=== PATIENT | male | born 1945 | race Caucasian/White ===

== ENCOUNTER 2019-03-09 01:29 | Outpatient (CLI) | payer MEDICARE, OTHER, SELFPAY ==
--- NOTE | 2019-03-09 | PFT_ITS ---
PULMONARY FUNCTION TEST REPORT Patient - Mark Rivers DATE OF SERVICE March 09, 2019 REQUESTING PROVIDER Gilbert Lopez M.D. INTERPRETATION OF STUDY Spirometry shows no evidence of obstructive airways disease. No bronchodilator testing was carried out. LUNG VOLUMES - Lung volumes show no evidence of restriction. DIFFUSION CAPACITY- Normal. AIRWAY RESISTANCE - Normal. IMPRESSION Normal pulmonary function study. Clinical correlation recommended. Johnna Chapin M.D. SORAIDA/ T- 03/10/2019
== END 2019-03-09 01:49 ==
PROVIDERS: PCP Family Medicine; Visit Provider Family Medicine
DX: R06.2 Wheezing (principal); R05 Cough; R06.09 Other forms of dyspnea; Z87.891 Personal history of nicotine dependence; Z77.29 Contact with and (suspected) exposure to other hazardous substances
CPT/HCPCS: 94150; 94726; 94729; 94010

== ENCOUNTER 2019-05-23 10:05 | Outpatient (REF) | payer MEDICARE, OTHER, SELFPAY ==
[2019-05-23 14:24] LABS: Anion Gap 6.4 mmol/L (3-11); BUN 28 mg/dL (7-18); CO2 28.6 mmol/L (21.0-32.0); CREATININE 0.78 mg/dL (0.70-1.30); Calcium 9.1 mg/dL (8.5-10.1); Chloride 106 mmol/L (98-107); Glucose 105 mg/dL (70-100); Potassium 4.5 mmol/L (3.5-5.1); Sodium 141 mmol/L (136-145)
== END 2019-05-23 10:25 ==
LOC: NCHCN 10:05
PROVIDERS: PCP Family Medicine; Visit Provider Family Medicine
DX: M19.90 Unspecified osteoarthritis, unspecified site (principal); M54.5 Low back pain
CPT/HCPCS: 80048

== ENCOUNTER 2019-07-31 00:56 | Outpatient (CLI) | payer MEDICARE, OTHER, SELFPAY ==
--- NOTE | 2019-07-31 08:19 | DI.CT_ITS ---
EXAM: CT HEAD WO CLINICAL HISTORY: HEADACHE, POST TRAUMATIC, G44.309, DAILY DEL ROSARIO SINCE TRAUMA TECHNIQUE: COMPARISON: No exams were available for comparison FINDINGS: Noncontrast cranial CT was performed. There is mild generalized cerebral atrophy. No evidence of in tracranial hemorrhage, mass effect, or midline shift. Orbital and temporal bone structures appear in tact. Visualized mastoid air cells and paranasal sinuses are clear. No calvarial fracture identifie d. IMPRESSION: No evidence of acute intracranial process.
== END 2019-07-31 01:16 ==
PROVIDERS: PCP Family Medicine; Visit Provider Family Medicine
DX: G44.309 Post-traumatic headache, unspecified, not intractable (principal); G31.89 Other specified degenerative diseases of nervous system
CPT/HCPCS: 70450

== ENCOUNTER 2020-03-01 10:38 | Outpatient (REF) | payer MEDICARE, OTHER, SELFPAY ==
[2020-03-01 23:25] LABS: Anion Gap 5.5 mmol/L (3-11); BUN 25 mg/dL (7-18); CO2 29.5 mmol/L (21.0-32.0); CREATININE 0.78 mg/dL (0.70-1.30); Calcium 9.2 mg/dL (8.5-10.1); Calculated LDL 62 mg/dL (<100); Chloride 104 mmol/L (98-107); Cholesterol 128 mg/dL (<200); Glucose 101 mg/dL (74-106); HDL Cholesterol 45 mg/dL (40-60); Potassium 4.5 mmol/L (3.5-5.1); Sodium 139 mmol/L (136-145); Triglyceride 106 mg/dL (<150)
== END 2020-03-01 10:58 ==
LOC: NCHCN 10:38
PROVIDERS: PCP Family Medicine; Visit Provider Family Medicine
DX: I25.10 Atherosclerotic heart disease of native coronary artery without angina pectoris (principal); I49.3 Ventricular premature depolarization; M19.90 Unspecified osteoarthritis, unspecified site
CPT/HCPCS: 80048; 80061; 83735

== ENCOUNTER 2020-10-23 15:39 | Outpatient (REF) | payer MEDICARE, OTHER, SELFPAY ==
[2020-10-23 15:34] LABS: Prothrombin Time 10.2 sec (9.3-11.0)
[2020-10-23 15:52] LABS: ALT 34 U/L (16-63); AST 25 U/L (15-37); Albumin 4.1 g/dL (3.4-5.0); Alkaline Phosphatase 75 U/L (46-116); Anion Gap 9.7 mmol/L (3-11); BUN 37 mg/dL (7-18); Bilirubin, Total 0.4 mg/dL (0.2-1.0); CO2 25.3 mmol/L (21.0-32.0); CREATININE 0.9 mg/dL (0.70-1.30); Chloride 106 mmol/L (98-107); Glucose 106 mg/dL (74-106); Potassium 4.4 mmol/L (3.5-5.1); Sodium 141 mmol/L (136-145); Total Protein 7.4 g/dL (6.4-8.2)
== END 2020-10-23 15:40 | disposition home or self-care (01) ==
LOC: NCHCN 15:39
PROVIDERS: PCP Family Medicine; Visit Provider Family Medicine
DX: I10 Essential (primary) hypertension (principal); E78.5 Hyperlipidemia, unspecified; Z51.81 Encounter for therapeutic drug level monitoring
CPT/HCPCS: 80053; 85610

== ENCOUNTER 2021-09-16 14:38 | Outpatient (REF) | payer MEDICARE, OTHER, SELFPAY ==
[2021-09-16 14:50] LABS: HCT 43.7 % (40.0-50.0); HGB 14.5 g/dL (13.5-17.5); MCH 31.3 pg (27.0-33.0); MCHC 33.2 % (32.0-36.0); MCV 94.4 fL (80-95); MPV 9.8 fL (8.0-11.0); Platelet Count 261 10^3/uL (130-400); RBC 4.63 10^6/uL (4.36-5.78); RDW 10.8 % (11.8-14.1); RDW-SD 37.2 fL; WBC 6.18 10^3/uL (4.4-10.8)
[2021-09-16 15:03] LABS: Anion Gap 10.2 mmol/L (3-11); BUN 27 mg/dL (7-18); CO2 26.8 mmol/L (21.0-32.0); Calcium 9.2 mg/dL (8.5-10.1); Chloride 104 mmol/L (98-107); Glucose 110 mg/dL (74-106); Potassium 3.9 mmol/L (3.5-5.1); Sodium 141 mmol/L (136-145)
== END 2021-09-16 14:39 | disposition home or self-care (01) ==
LOC: NCHCN 14:38
PROVIDERS: PCP Family Medicine; Visit Provider Family Medicine
DX: M51.36 Other intervertebral disc degeneration, lumbar region (principal); I25.10 Atherosclerotic heart disease of native coronary artery without angina pectoris
CPT/HCPCS: 80048; 85027

== ENCOUNTER 2022-05-12 14:59 | Outpatient (REF) | payer MEDICARE, SELFPAY ==
[2022-05-16 04:40] LABS: EDDP-by GC-MS Negative ng/mL (Cutoff: 100); Methadone Interpretation Negative.; Methadone-by GC-MS Negative ng/mL (Cutoff: 100)
== END 2022-05-12 15:00 | disposition home or self-care (01) ==
LOC: NCHCN 14:59
PROVIDERS: PCP Family Medicine; Visit Provider Family Medicine
DX: M54.59 Other low back pain (principal)
CPT/HCPCS: 80358

== ENCOUNTER 2022-07-15 13:03 | Outpatient (REF) | payer MEDICARE, SELFPAY ==
[2022-07-15 15:52] LABS: ALT 19 U/L (16-63); AST 20 U/L (15-37); Albumin 3.9 g/dL (3.4-5.0); Alkaline Phosphatase 76 U/L (46-116); Anion Gap 6.7 mmol/L (3-11); BUN 25 mg/dL (7-18); Bilirubin, Total 0.4 mg/dL (0.2-1.0); CO2 28.3 mmol/L (21.0-32.0); CREATININE 0.8 mg/dL (0.70-1.30); Calcium 8.7 mg/dL (8.5-10.1); Chloride 106 mmol/L (98-107); Estimated GFR 91.72 (mL/min/1.73m2); Glucose 104 mg/dL (74-106); Potassium 4.2 mmol/L (3.5-5.1); Sodium 141 mmol/L (136-145); TSH (W/Ref FT4) 1.18 uIU/mL (0.36-3.74); Total Protein 7.3 g/dL (6.4-8.2)
== END 2022-07-15 13:04 | disposition home or self-care (01) ==
LOC: NCHCN 13:03
PROVIDERS: PCP Family Medicine; Visit Provider Family Medicine
DX: I49.3 Ventricular premature depolarization (principal); R25.1 Tremor, unspecified; Z79.899 Other long term (current) drug therapy
CPT/HCPCS: 80053; 83735; 84443

== ENCOUNTER → 2022-10-01 13:36 | Outpatient (BNVA) | payer MEDICARE, SELFPAY | PROVIDERS: PCP Family Medicine; Referring Provider Family Medicine; Visit Provider Physical Therapy Assistant | DX: Z12.11 Encounter for screening for malignant neoplasm of colon (principal); Z86.010 Personal history of colon polyps ==

== ENCOUNTER 2022-10-15 09:46 | Day surgery (SDC) | payer MEDICARE, SELFPAY ==
--- NOTE | 2022-10-14 20:40 | W.PM.DSUDISC ---
Date of service: 10/15/22 Time of Service: 11:38 Discharge Plan Disposition Condition: Good Discharge Details Reason For Visit: colonoscopy Attending Provider: Carter Moran Primary Care Provider: Gilbert Lopez [place] Meds and New Rx's Prescriptions: Continued meloxicam 15 MG tablet 15 mg PO DAILY tramadol 50 MG tablet 50 mg PO Q4H PRN simvastatin 40 MG tablet 40 mg PO DAILY duloxetine [Cymbalta] 30 MG capsule,delayed release(DR/EC) 60 mg PO DAILY hydrocodone-acetaminophen [Vicodin] 1 EACH tablet 1 tab-cap PO Q6H PRN pramipexole 0.75 MG tablet 0.75 mg PO HS cholecalciferol (vitamin D3) [Vitamin D3] 2,000 UNIT capsule 2,000 unit PO DAILY gabapentin 100 MG capsule 100 mg PO QID metoprolol succinate 25 mg tablet extended release 24 hr 12.5 mg PO HS atorvastatin 40 mg tablet 40 mg PO DAILY tamsulosin 0.4 mg capsule 0.8 mg PO QHS finasteride 5 mg tablet 5 mg PO DAILY trazodone 50 mg tablet 75 mg PO QHS PRN acetaminophen 500 mg tablet 1,000 mg PO Q6H PRN diclofenac sodium [Arthritis Pain (diclofenac)] 1 % gel 2 g topical QID Rx Instructions: apply to single elbow, wrist or hand; for hand includes palm/fingers/back of hand psyllium husk [Fiber (psyllium husk)] 0.4 gram capsule 0.4 g PO DAILY nystatin 100,000 unit/gram powder 1 applic topical DAILY Discontinued bisacodyl [Dulcolax (bisacodyl)] 5 mg tablet,delayed release (DR/EC) 5 mg PO ONCE Qty: 4 0RF Rx Instructions: Take according to provider's instructions for colonoscopy prep. polyethylene glycol 3350 17 gram/dose powder 17 g PO ONCE Qty: 238 0RF Rx Instructions: To be taken as directed by prescriber's office for colonoscopy prep. Discharge Instructions Instructions: Diverticulosis Diet (GEN), Diverticulosis (GEN) Additional Instructions: Mark, we were able to complete your colonoscopy without any difficulty today. The quality of your preparation was excellent. I did not see any signs of colon polyps. Incidentally, you do have diverticulosis. These are small weak spots in the colon wall. Many patients are asymptomatic. Others experience pain that is typically on the left side of their abdomen. Diverticulosis can also cause bleeding in your gastrointestinal tract. I have attached some information here regarding general management of diverticulosis. Based on the otherwise negative nature of your colonoscopy today a typical recommendation would be to have another one in 10 years. However, you should know that there is not a consensus regarding the appropriate age to discontinue screening colonoscopies. I encourage you to discuss this with your primary care doctors in years to come. 1. If tolerated, consume a soft, low fiber diet for 1-2 days. 2. Do not drive, drink alcohol, operate machinery, make critical decisions, or do activities that require coordination or balance for 24 hours. 3. Because air was put into your colon during the procedure, expelling air from your rectum (passing gas or farting) is normal. 4. You may not have a bowel movement for 1-3 days because of the colonoscopy prep. This is normal. 5. Go directly to the emergency room if you notice any of the following: Develop chills (warm to touch), or if you have a thermometer and your temperature is above 101 Difficulty breathing or difficultly swallowing Persistent vomiting Severe abdominal pain, other than gas cramps Severe chest pain Black, tarry stools Any bleeding ? exceeding one tablespoon 6. Call your physician if the site where your intravenous was started becomes red, swollen, painful, and warm to touch. 7. Your physician has reviewed your pre-procedure medications. Please continue to take those medications as previously ordered. You will be given specific information/education regarding any changes to your medications before leaving. Activity:: Activity as Tolerated Diet:: As Tolerated DS: Diagnosis Discharge Diagnosis (1) Colon polyps: Status: Acute Asessment and Plan: Normal screening colonoscopy today, without any evidence of colorectal polyps.
--- NOTE | 2022-10-14 20:43 | COLE_ITS ---
Date of service: 10/15/22 Time of Service: 11:42 Colonoscopy Report Date of procedure: 10/15/22 Pre-op diagnosis general: screening colonoscopy Post-op diagnosis procedure note: other (Diverticulosis) Procedure: Colonoscopy Surgeon: Carter Moran Anesthesia Type: General:No Airway Estimated blood loss (mL): 0 Pathology: none sent Complications: None Disposition: same day Indications: Mark is a 77 year old male with a perpsobal history of colon polyps who is following up for his next screening colonoscopy Prep: Miralax/Dulcolax Procedure Start Time: 11:03 Procedure End Time: 11:14 Retraction Time: 9 Findings: Diverticulosis Procedure Description: After the induction of monitored anesthetic care, and with the patient in left lateral decubitus position, I began by performing an external anorectal exam.? Perineum and skin were normal, as was the anal verge.? There was no evidence of external hemorrhoids.? Next, I performed a digital rectal exam.? I did not appreciate any abnormal findings.? Next, I advanced a colonoscope into the rectal vault.? I performed retroflexion.? This appeared normal.? Using insufflation, I then advanced the colonoscope beyond the rectal folds and into the sigmoid colon before advancing towards the cecum.? The quality of the prep was excellent.? There was moderate sigmoid diverticulosis. the scope was noted to be in the cecum by identification of the ileocecal valve and appendiceal o rifice.? I then began withdrawing the colonoscope using repeated irrigation as necessary for full evaluation of the colonic mucosa. ?Once the scope was withdrawn to the level of the rectum, great care was taken to examine portions of the rectal folds.? Finally, the scope was withdrawn and the patient was brought to the same-day surgery recovery unit as the anesthetic wore off. ?The findings and instructions were shared with the patient prior to discharge.
[2022-10-15 10:00] VITALS: BP 90/61; PULSE 71; RESP 16; TEMP 36.4; O2SAT 95
--- NOTE | 2022-10-15 10:39 | W.ANESPRE ---
General Info Date of Service Date Performed: 10/15/22 Height: 5 ft 6.5 in Weight: 84.5 kg Body Mass Index (BMI): 29.6 Surgical Procedure: Operation Date: 10/15/22 11:20 Proposed Procedure Side Surgeon cara Moran MD Meds Allergies and Home Medications Allergies Allergy/AdvReac Type Severity Reaction Status Date / Time Penicillins Allergy Intermediate facial Unverified 10/15/22 10:18 swelling Home Medication Medication Instructions Recorded cholecalciferol (vitamin D3) 50 2,000 unit PO DAILY 12/25/14 mcg (2,000 unit) capsule (Vitamin D3) duloxetine 30 mg capsule,delayed 60 mg PO DAILY 12/25/14 release (Cymbalta) hydrocodone 5 mg-acetaminophen 300 1 tab-cap PO Q6H PRN 12/25/14 mg tablet (Vicodin) meloxicam 15 mg tablet 15 mg PO DAILY 12/25/14 pramipexole 0.75 mg tablet 0.75 mg PO HS 12/25/14 simvastatin 40 mg tablet 40 mg PO DAILY 12/25/14 tramadol 50 mg tablet 50 mg PO Q4H PRN 12/25/14 gabapentin 100 mg capsule 100 mg PO QID 12/28/14 acetaminophen 500 mg tablet 1,000 mg PO Q6H PRN 07/17/22 atorvastatin 40 mg tablet 40 mg PO DAILY 07/17/22 diclofenac sodium 1 % topical gel 2 g topical QID 07/17/22 (Arthritis Pain (diclofenac)) finasteride 5 mg tablet 5 mg PO DAILY 07/17/22 metoprolol succinate 25 mg 12.5 mg PO HS 07/17/22 tablet,extended release 24 hr nystatin 100,000 unit/gram topical 1 applic topical DAILY 07/17/22 powder psyllium husk 0.4 gram capsule 0.4 g PO DAILY 07/17/22 (Fiber (psyllium husk)) tamsulosin 0.4 mg capsule 0.8 mg PO QHS 07/17/22 trazodone 50 mg tablet 75 mg PO QHS PRN 07/17/22 Current Visit Medications: Current Medications Generic Name Dose Route Start Last Admin Trade Name Freq PRN Reason Stop Dose Admin Hyoscyamine Sulfate 0.125 mg 10/14/22 20:49 Hyoscyamine 0.125 Mg Sl/Oral/Chew SL 10/15/22 20:48 PRN PRN Ringer's Solution 1,000 mls @ 80 mls/hr 10/15/22 06:00 IV 11/13/22 23:59 [facility] IV Miscellaneous Supplies 1 each 10/15/22 06:00 Iv Access IV 11/13/22 23:59 DIRECTED LEIDA Ondansetron HCl 4 mg 10/14/22 20:44 Ondansetron 4 Mg/2 Ml Vial IVP Q4H PRN PRN Nausea / Vomiting Sodium Chloride 0 ml 10/15/22 06:00 Normal Saline Flush 10 Ml Syr IV 11/13/22 23:59 PRN PRN Sodium Chloride 0 ml 10/15/22 06:00 Normal Saline 10 Ml Vial IJ 11/13/22 23:59 DIRECTED PRN Sterile Water 0 ml 10/15/22 06:00 Water,Injection,Sterile 10 Ml Vial IJ 11/13/22 23:59 DIRECTED PRN PFSH Active Problems Active Problems: Problem Status Onset Code 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 BPH loc w urin obs/LUTS N40.1 Screening for colon cancer Z12.11 H/O bacterial meningitis Z86.61 Restless legs G25.81 Anxiety and depression F41.9, F32.A Hyperlipidemia E78.5 CAD (coronary artery disease) I25.10 BPH w urinary obs/LUTS N40.1, N13.8 Hydrocele, right N43.3 Headache, post-traumatic G44.309 Osteoarthritis of carpometacarpal joint M19.049 Premature ventricular beat I49.3 Insomnia G47.00 H/O degenerative disc disease Z87.39 DJD (degenerative joint disease) M19.90 Back pain M54.9 Chronic pain G89.29 Colon polyps K63.5 Tremor R25.1 Surgical History Surgical History History of colonoscopy Tobacco Smoking/Tobacco Use Status: Former Tobacco Use Alcohol Alcohol Intake: former Substance Use Substance use: Never Substance use type: does not use Vital Signs and Lab Results Vital Signs Most Recent Vital Signs in EMR: Most Recent Vital Signs Temp Pulse Resp BP Pulse Ox 36.4 C L 71 16 90/61 L 95 10/15/22 10:00 10/15/22 10:00 10/15/22 10:00 10/15/22 10:00 10/15/22 10:00 Lab Results Blood Type / Crossmatch: No Data to Display Complete Blood Count: No Data to Display Complete Metabolic Panel: No Data to Display Liver Function Panel: No Data to Display Coagulation Panel: No Data to Display Cardiac Panel: No Data to Display Arterial Blood Gas: No Data to Display Venous Blood Gas: No Data to Display Pancreas Panel: No Data to Display Thyroid Panel: No Data to Display Infectious Disease: No Data to Display Blood Cultures: No Data to Display Toxicology Panel: No Data to Display Imaging and Studies Imaging and Studies Study information below may be from another EMR and interpreted by another provider. Please see original notes in EMR for more complete details. Pulmonary Function Summary: IMPRESSION Normal pulmonary function study. Clinical correlation recommended. Anesthesia Assessment and Plan Anesthesia History Personal History: No History of Anesthesia Complications Family History: No Family History of Anesthesia Complications Exercise Tolerance Exercise Tolerance: Metabolic Equivalents>4 Pertinent Negatives Pertinent Negatives: No Symptoms of GERD Cardiac & Pulmonary Exam Cardiac Exam: Normal S1/S2 Heart Sounds Pulmonary Exam: Clear Bilateral Breath Sounds Implantable Cardiac Device Does patient have a Pacemaker or an ICD?: No Airway Exam Known Difficult Airway: No Mallampati Class: 2 Mouth Opening: Normal (> 3cm) Thyromental Distance: Greater than 3 cm Neck Range of Motion: Full ROM Neck Circumference: Normal Teeth Condition: Edentulous ASA Classification ASA Score: ASA 2 Emergency Case?: No NPO Status NPO Status: NPO Clears >2 hours, Solids >8 hours Anesthesia Plan Resuscitation Status: Full Code Anesthesia Technique: General Anesthesia Airway Planned: Natural Airway Monitors Used: Standard Monitors
[2022-10-15] MEDS: Lactated Ringers 1,000 ML 80 ML IV (10:40)
[2022-10-15 10:44] VITALS: BMI 29.6
[2022-10-15 11:24] VITALS: BP 91/58; PULSE 63; RESP 16; TEMP 36.5; O2SAT 64
--- NOTE | 2022-10-15 11:32 | W.ANESPOSTOP ---
Postoperative Evaluation Date, Time and Location Date Performed: 10/15/22 Time Performed: 11:33 Patient Location: Day Surgery Unit Vital Signs Most Recent Imported Vital Signs: Most Recent Vital Signs Temp Pulse Resp BP Pulse Ox 36.5 C 63 16 91/58 L 64 L 10/15/22 11:24 10/15/22 11:24 10/15/22 11:24 10/15/22 11:24 10/15/22 11:24 Assessment Mental Status: Arousable with meaningful communication Airway and Respiratory Function: Patent airway with normal (patient baseline) respiratory exam Cardiovascular Function: Hemodynamically Stable Hydration Status: Adequately Hydrated Nausea & Vomiting: No Nausea or Vomiting Pain: Pt. Denies Any Pain Peripheral Nerve Block: Patient did not receive a nerve block
[2022-10-15 11:58] VITALS: BP 90/58; PULSE 62; RESP 18; TEMP 36.5; O2SAT 95
== END 2022-10-15 12:17 | disposition home or self-care (01) ==
PROVIDERS: PCP Family Medicine; Visit Provider Surgery
PROC: 0DJD8ZZ Inspection of Lower Intestinal Tract, Via Natural or Artificial Opening Endoscopic (ICD-10-PCS; CPT 45378; principal; 2022-10-15 11:15)
DX: Z12.11 Encounter for screening for malignant neoplasm of colon (principal); Z86.010 Personal history of colon polyps; K57.30 Diverticulosis of large intestine without perforation or abscess without bleeding
CPT/HCPCS: G0105

== ENCOUNTER → 2022-10-26 10:37 | Outpatient (BNVA) | payer MEDICARE, SELFPAY | PROVIDERS: PCP Family Medicine; Referring Provider Family Medicine; Visit Provider Nurse Practitioner Gerontology | DX: N43.2 Other hydrocele (principal); Z80.42 Family history of malignant neoplasm of prostate; N40.1 Benign prostatic hyperplasia with lower urinary tract symptoms; R39.89 Other symptoms and signs involving the genitourinary system | CPT/HCPCS: 36415; 99215 ==

== ENCOUNTER 2022-10-26 11:35 | Outpatient (REF) | payer MEDICARE, SELFPAY ==
[2022-10-27 19:35] LABS: PSA, Diagnostic 1.9 ng/mL (<=6.5)
== END 2022-10-26 11:36 | disposition home or self-care (01) ==
LOC: LBN 11:35
PROVIDERS: PCP Family Medicine; Visit Provider Nurse Practitioner Gerontology
DX: N40.1 Benign prostatic hyperplasia with lower urinary tract symptoms (principal); N13.8 Other obstructive and reflux uropathy; N42.9 Disorder of prostate, unspecified
CPT/HCPCS: 84153

== ENCOUNTER → 2023-04-27 10:10 | Outpatient (BNVA) | payer MEDICARE, SELFPAY | PROVIDERS: PCP Family Medicine; Referring Provider Family Medicine; Visit Provider Nurse Practitioner Gerontology | DX: N43.3 Hydrocele, unspecified (principal); N40.1 Benign prostatic hyperplasia with lower urinary tract symptoms; R39.89 Other symptoms and signs involving the genitourinary system; Z80.42 Family history of malignant neoplasm of prostate | CPT/HCPCS: 99213 ==

== ENCOUNTER 2023-05-21 14:59 | Outpatient (REF) | payer MEDICARE, SELFPAY ==
[2023-05-21 19:31] LABS: Anion Gap 7.2 mmol/L (3-11); BUN 36 mg/dL (7-18); CO2 26.8 mmol/L (21.0-32.0); CREATININE 0.8 mg/dL (0.70-1.30); Calcium 9.5 mg/dL (8.5-10.1); Chloride 106 mmol/L (98-107); Estimated GFR 91.15 (mL/min/1.73m2); Glucose 99 mg/dL (74-106); Potassium 4.3 mmol/L (3.5-5.1); Sodium 140 mmol/L (136-145)
== END 2023-05-21 15:00 | disposition home or self-care (01) ==
LOC: NCHCN 14:59
PROVIDERS: PCP Family Medicine; Visit Provider Family Medicine
DX: R25.1 Tremor, unspecified (principal); M54.59 Other low back pain; G89.4 Chronic pain syndrome; Z79.899 Other long term (current) drug therapy
CPT/HCPCS: 80048

== ENCOUNTER → 2023-06-02 09:57 | Outpatient (BNVA) | payer MEDICARE, SELFPAY | PROVIDERS: PCP Family Medicine; Referring Provider Family Medicine; Visit Provider Student in an Organized Health Care Education/Training Program | DX: M19.011 Primary osteoarthritis, right shoulder (principal); M19.012 Primary osteoarthritis, left shoulder | CPT/HCPCS: 20610; 99213; J1030 ==

== ENCOUNTER 2023-07-30 10:55 | Outpatient (CLI) | payer MEDICARE, SELFPAY ==
--- NOTE | 2023-07-30 10:45 | DI.RAD_ITS ---
Exam(s) XR KNEE RT 3V AP,LAT,SEFERINO EXAM: XR KNEE RT 3V AP,LAT,SEFERINO CLINICAL HISTORY: R knee pain. TECHNIQUE: 2D digital imaging was performed. Three views. COMPARISON: No exams were available for comparison FINDINGS: BONES: No acute fracture is present. No bony destructive lesion is seen. JOINTS: The knee is normally aligned. No joint effusion is seen. Severe degenerative changes medial f emoral tibial joint. Periarticular spurring noted throughout. SOFT TISSUE: Marked anterior soft tissue swelling IMPRESSION: Marked anterior soft tissue swelling. Advanced degenerative changes medial femoral tibial joint. DATA REPOSITORY: RADIATION DOSE DELIVERED:
== END 2023-07-30 10:56 | disposition home or self-care (01) ==
LOC: DIORS 10:56
PROVIDERS: PCP Family Medicine; Referring Provider Family Medicine; Visit Provider Physician Assistant
DX: M17.11 Unilateral primary osteoarthritis, right knee; M70.41 Prepatellar bursitis, right knee
CPT/HCPCS: 20610; 73562; J1040

== ENCOUNTER → 2023-10-06 10:30 | Outpatient (BNVA) | payer MEDICARE, SELFPAY | PROVIDERS: PCP Family Medicine; Referring Provider Family Medicine; Visit Provider Student in an Organized Health Care Education/Training Program | DX: M19.011 Primary osteoarthritis, right shoulder (principal); M19.012 Primary osteoarthritis, left shoulder | CPT/HCPCS: 20610; J1030 ==

== ENCOUNTER → 2023-10-26 10:29 | Outpatient (BNVA) | payer MEDICARE, SELFPAY | PROVIDERS: PCP Nurse Practitioner Family; Visit Provider Nurse Practitioner Gerontology | DX: N40.1 Benign prostatic hyperplasia with lower urinary tract symptoms (principal); N43.3 Hydrocele, unspecified | CPT/HCPCS: 51798; 99213 ==

== ENCOUNTER → 2024-01-11 13:22 | Outpatient (BNVA) | payer MEDICARE, SELFPAY | PROVIDERS: PCP Nurse Practitioner Family; Referring Provider Nurse Practitioner Family; Visit Provider Student in an Organized Health Care Education/Training Program | DX: M19.011 Primary osteoarthritis, right shoulder (principal); M19.012 Primary osteoarthritis, left shoulder | CPT/HCPCS: 20610; J1010 ==

== ENCOUNTER → 2024-04-20 13:17 | Outpatient (BNVA) | payer MEDICARE, SELFPAY | PROVIDERS: PCP Nurse Practitioner Family; Referring Provider Nurse Practitioner Family | DX: M19.011 Primary osteoarthritis, right shoulder (principal); M19.012 Primary osteoarthritis, left shoulder | CPT/HCPCS: 20610; J1010 ==

== ENCOUNTER → 2024-05-02 09:17 | Outpatient (BNVA) | payer MEDICARE, SELFPAY | PROVIDERS: PCP Nurse Practitioner Family; Visit Provider Nurse Practitioner Gerontology | DX: N40.1 Benign prostatic hyperplasia with lower urinary tract symptoms (principal); N13.8 Other obstructive and reflux uropathy; N43.3 Hydrocele, unspecified; Z80.42 Family history of malignant neoplasm of prostate | CPT/HCPCS: 51798; 99213 ==

== ENCOUNTER 2024-05-02 11:24 | Outpatient (CLI) | payer MEDICARE, SELFPAY ==
[2024-05-02 18:52] LABS: PSA, Diagnostic 0.8 ng/mL (<=6.5)
== END 2024-05-02 11:25 ==
LOC: LBO 11:29
PROVIDERS: PCP Nurse Practitioner Family; Visit Provider Nurse Practitioner Gerontology
DX: N40.1 Benign prostatic hyperplasia with lower urinary tract symptoms (principal); N13.8 Other obstructive and reflux uropathy; N43.3 Hydrocele, unspecified; Z80.42 Family history of malignant neoplasm of prostate; R39.9 Unspecified symptoms and signs involving the genitourinary system
CPT/HCPCS: 36415; 51798; 99213; 84153

== ENCOUNTER 2024-05-29 15:42 | Outpatient (REF) | payer MEDICARE, SELFPAY ==
[2024-05-29 18:02] LABS: ALT 35 U/L (16-63); AST 27 U/L (15-37); Albumin 3.9 g/dL (3.4-5.0); Alkaline Phosphatase 81 U/L (46-116); Anion Gap 9.3 mmol/L (3-11); BUN 33 mg/dL (7-18); Bilirubin, Total 0.38 mg/dL (0.2-1.0); CO2 27.7 mmol/L (21.0-32.0); Calcium 9.1 mg/dL (8.5-10.1); Calculated LDL 51 mg/dL (<100); Chloride 107 mmol/L (98-107); Cholesterol 136 mg/dL (<200); Estimated GFR 77.04 (mL/min/1.73m2); Glucose 106 mg/dL (74-106); HDL Cholesterol 68 mg/dL (40-60); Potassium 4.6 mmol/L (3.5-5.1); Sodium 144 mmol/L (136-145); Total Protein 7.3 g/dL (6.4-8.2); Triglyceride 89 mg/dL (<150)
== END 2024-05-29 15:43 | disposition home or self-care (01) ==
LOC: NCHCN 15:42
PROVIDERS: PCP Nurse Practitioner Family; Visit Provider Nurse Practitioner Family
DX: I25.10 Atherosclerotic heart disease of native coronary artery without angina pectoris (principal)
CPT/HCPCS: 80053; 80061

== ENCOUNTER 2024-06-09 19:54 | Emergency (ER) | payer MEDICARE, SELFPAY ==
--- NOTE | 2024-06-09 20:00 | DI.CT_ITS ---
Exam(s) CT UPPER EXTREMITY LT W EXAM: CT UPPER EXTREMITY LT W CLINICAL HISTORY: Concern for biceps tendon rupture/tear. TECHNIQUE: Imaging Protocol: Axial computed tomography images with coronal and sagittal reformatted images were created and reviewed. CONTRAST MATERIAL: Intravenous: Omnipaque [id number]. Contrast Volume: 100 ML COMPARISON: CR XR SHOULDER LEFT from 03/23/2023 FINDINGS: Bones: The osseous structures and articular surfaces are intact. Bony alignment is satisfactory. N o cellulitic or osteomyelitic changes are identified. Degenerative changes are seen at the acromiocl avicular and glenohumeral joints. The visualized elbow is intact. No lytic or sclerotic lesions are identified. Soft Tissues: The biceps tendon does appear to be intact distally but this is better evaluated on MRI examination. There is edema seen around the biceps tendon throughout its length anteriorly. The fi ndings are most marked in the proximal arm near the bicipital groove. There may be mild decrease in density of the muscle in the proximal arm (series 13 images 82 through 93 which may represent a muscl e tear. Enhancement: No abnormal enhancement is identified. IMPRESSION: 1. No acute fracture or dislocation. 2. There is edema seen around the biceps muscle which is most marked in the proximal arm near the bic ipital groove. 3. There is a question of decreased density in the biceps muscle in the proximal arm which may repres ent a muscle tear. Infection/inflammation cannot be excluded. 4. No focal fluid collection is seen to suggest an abscess. 5. MRI is recommended for further evaluation. RADIATION DOSE DELIVERED: 877.36mGy.cm Total DLP 877.36mGy.cm Total DLP DATA REPOSITORY: All CT scans at this facility are submitted to the National Radiology Data Registry (NRDR) Dose Index Registry (DIR) with the [employer] ([employer]). RADIATION OPTIMIZATION: All CT scans at this facility use at least one of these dose optimization te chniques: automated exposure control; mA and/or kV adjustment per patient size (includes targeted exa ms where dose is matched to clinical indication); or iterative reconstruction.
[2024-06-09 20:02] VITALS: BP 118/70; PULSE 91; RESP 18; TEMP 36.7; O2SAT 98
--- NOTE | 2024-06-09 20:07 | ED.GENADUL_ITS ---
Discharge Plan Disposition Patient Disposition: Home Condition: Stable Discharge Details Clinical Impression: Tear of left biceps muscle, CAD (coronary artery disease), Hyperlipidemia, Osteoarthritis of glenohumeral joints, bilateral, DJD (degenerative joint disease) Primary Care Provider: ELVIA BARRETT ED Provider: Ness Mera Home Meds and New Rx's Prescriptions: No Action duloxetine [Cymbalta] 30 MG capsule,delayed release(DR/EC) 60 mg PO DAILY hydrocodone-acetaminophen [Vicodin] 1 EACH tablet 1 tab-cap PO Q6H PRN pramipexole 0.75 MG tablet 0.75 mg PO HS cholecalciferol (vitamin D3) [Vitamin D3] 2,000 UNIT capsule 2,000 unit PO DAILY atorvastatin 40 mg tablet 40 mg PO DAILY tamsulosin 0.4 mg capsule 0.8 mg PO QHS finasteride 5 mg tablet 5 mg PO DAILY trazodone 50 mg tablet 75 mg PO QHS PRN acetaminophen 500 mg tablet 1,000 mg PO Q6H PRN diclofenac sodium [Arthritis Pain (diclofenac)] 1 % gel 2 g topical QID Rx Instructions: apply to single elbow, wrist or hand; for hand includes palm/fingers/back of hand psyllium husk [Fiber (psyllium husk)] 0.4 gram capsule 0.4 g PO DAILY nystatin 100,000 unit/gram powder 1 applic topical DAILY gabapentin 600 mg tablet 600 mg PO QID Discharge Instructions Instructions: Muscle Strain (DC) Additional Instructions: You were seen in the emergency department today for evaluation of a bulge in your upper arm that is concerning for a biceps muscle tear. You had a full p hysical examination performed with reassuring laboratory studies and got a CT scan that did not show any fractures, dislocations, or fluid collections. It is safe for you to go home and to avoid excessive exertion or strain on that arm until you can be evaluated by orthopedics. Please continue to use all of your home pain management regimens, and wear a sling for comfort as needed to support your arm. You need to follow-up with orthopedics to discuss this injury and neck steps in management. Thank you for allowing us to be part of your care. HPI General Mode of arrival: ambulatory . Date/Time Provider Initiated Documentation: 06/09/24 19:55 . Limitations to Documentation: no limitations . Information obtained by: patient, family and old records reviewed . HPI Narrative: HPI: This is a 78-year-old male patient, [id number], with a past medical history significant for shoulder osteoarthritis, CAD, hyperlipidemia, and chronic back pain. He is presenting for evaluation of 4 days of left upper extremity pain with a new muscle bulge. The patient reports that he was using his tractor, was steering with his left arm, and felt a sudden swelling and popping sensation. He noted that the muscle in his left bicep region seems to bulge up. He states that he has noted some increased tenderness in that area but feels that he is still able to use his arm, but feels subjectively weaker. He reports that his shoulder pain, which typically responds to intra-articular cortisone injections, is located in a different location than his pain is today. He has not noted any numbness or tingling distal to the injury. Overlying ecchymosis appreciated. Prior to this event he was in his normal state of health. He has been taking his baseline pain regimen medications which include Vicodin and gabapentin. He has not required any additional medications for pain management in the outpatient environment Exam: Gen: Awake and alert, in no apparent distress HEENT: Non-icteric sclera Neck: Supple Lungs: No apparent respiratory distress, normal respiratory effort. CV: Appears well perfused, strong distal pulses Abdomen: Non-distended MSK: Moves 4 extremities without apparent limitation in ROM. The patient has a bulge in the region of his left biceps that is tender to palpation without overlying skin changes. He has preserved strength with flexion and extension, supination and pronation, but does note reproduction of pain with flexion and supination. Ruland biceps squeeze test does not elicit supination, distal biceps tendon palpable and without obvious evidence of rupture with hook test. Skin: Visualized skin without rashes, cyanosis. Ecchymosis overlying the left bicep as noted. Neuro: Normal Gait, no obvious focal deficits or facial asymmetry. Speaks in full, clear sentences. Psych: Appropriate for situation. MDM: This is a 78-year-old male patient presenting for evaluation of left bicep swelling and pain. Differential includes but is not limited to biceps tendon rupture, muscle strain/tear. Certainly considered fracture dislocation the patient did not sustain a significant traumatic event. I also considered hematoma, no significant concern for infectious pathology such as abscess. Considered osteoarthritis and wear and tear type strain. No evidence of neurovascular derangement on my physical examination. Unfortunately, we do not have the ability to get MRI in the emergency department this evening, and I do not feel that x-ray would appropriately elucidate the soft tissue concerns that I have. We will proceed with CT with contrast to evaluate for abnormalities. At this time the patient is not desiring of any medications for pain. I will also obtain baseline laboratory studies including CBC, CMP, PT/INR. ED Course: I independently interpreted the laboratory studies, which show no significant leukocytosis, anemia, or thrombocytopenia. The chemistry panel is without evidence of electrolyte abnormality, kidney dysfunction, or liver injury. Independently interpreted the patient's CT scan, and reviewed the radiologist report. There is evidence of biceps muscular tear within the limitations of the CT scan. No evidence for fluid collection such as hematoma or abscess. The patient has a sling at home and I counseled him to use it as needed for comfort and support. We discussed conservative management with his baseline pain regimen, ice, and follow-up with orthopedics. At this time, the patient has had a full medical evaluation and is safe for discharge to home. They are hemodynamically stable, ambulatory, and tolerating PO. They are understanding of the follow-up plan and return precautions. They left our facility without incident. Ness Mera MD Related Data Home Medications ?Medication ?Instructions ?Recorded ?Confirmed cholecalciferol (vitamin D3) 50 2,000 unit PO DAILY 12/25/14 06/09/24 mcg (2,000 unit) capsule (Vitamin D3) duloxetine 30 mg capsule,delayed 60 mg PO DAILY 12/25/14 06/09/24 release (Cymbalta) hydrocodone 5 mg-acetaminophen 300 1 tab-cap PO Q6H PRN 12/25/14 06/09/24 mg tablet (Vicodin) pramipexole 0.75 mg tablet 0.75 mg PO HS 12/25/14 06/09/24 acetaminophen 500 mg tablet 1,000 mg PO Q6H PRN 07/17/22 06/09/24 atorvastatin 40 mg tablet 40 mg PO DAILY 07/17/22 06/09/24 diclofenac sodium 1 % topical gel 2 g topical QID 07/17/22 06/09/24 (Arthritis Pain (diclofenac)) finasteride 5 mg tablet 5 mg PO DAILY 07/17/22 06/09/24 nystatin 100,000 unit/gram topical 1 applic topical DAILY 07/17/22 06/09/24 powder psyllium husk 0.4 gram capsule 0.4 g PO DAILY 07/17/22 06/09/24 (Fiber (psyllium husk)) tamsulosin 0.4 mg capsule 0.8 mg PO QHS 07/17/22 06/09/24 trazodone 50 mg tablet 75 mg PO QHS PRN 07/17/22 06/09/24 gabapentin 600 mg tablet 600 mg PO QID 07/30/23 06/09/24 Allergies Allergy/AdvReac Type Severity Reaction Status Date / Time Penicillins Allergy Intermediate facial Unverified 06/09/24 20:05 swelling General Stated Complaint: Orthopedic ANDREW: 3 Course Vital Signs Vital signs: Vital Signs Temperature 36.7 C 06/09/24 20:02 Pulse 91 H 06/09/24 20:02 Respiratory Rate 18 06/09/24 20:02 Blood Pressure 118/70 06/09/24 20:02 Pulse Oximetry 98 06/09/24 20:02 Temperature 36.7 C 06/09/24 20:02 Pulse 91 H 06/09/24 20:02 Respiratory Rate 18 06/09/24 20:02 Respiratory Effort Normal 06/09/24 20:04 Blood Pressure 118/70 06/09/24 20:02 Pulse Oximetry 98 06/09/24 20:02 Pain Level 4 06/09/24 20:02 Medical Decision Making Quality:SDOH Health Related Social Needs: Health related social needs housing instability, house d, with risk of homelessness(Z59.811) PFSH All Active Problems (Updated 06/09/24 @ 21:16 by Ness Mera MD) Tear of left biceps muscle (Acute) Family history of prostate cancer in father (Acute) Prepatellar bursitis, right knee (Acute) Osteoarthritis of right knee (Acute) DEPO MEDROL 07/30/23 Osteoarthritis of glenohumeral joints, bilateral (Acute) Amanda nodes (DJD hand) (Acute) [place]ber[place] node (Acute) BPH loc w urin obs/LUTS (Acute) Screening for colon cancer (Acute) H/O bacterial meningitis (Acute) Restless legs (Acute) Anxiety and depression (Chronic) Hyperlipidemia (Acute) CAD (coronary artery disease) (Chronic) BPH w urinary obs/LUTS (Acute) Hydrocele, right (Acute) Headache, post-traumatic (Acute) Osteoarthritis of carpometacarpal joint (Acute) Premature ventricular beat (Acute) Insomnia (Acute) H/O degenerative disc disease (Acute) DJD (degenerative joint disease) (Chronic) Back pain (Acute) Chronic pain (Chronic) Colon polyps (Acute) Tremor (Acute) Surgical History History of colonoscopy Social History Smoking/Tobacco Use Status: Former Tobacco Use Quit Date: 07/12/62 Smoking risk assessment performed?: Yes Alcohol Intake: former Drug use: Never Substance use type: does not use Additional Social history: Unable to assess huy
[2024-06-09 20:25] LABS: Abs Immature Grans 0.02 10^3/uL (0.0-0.06); Absolute Basophil Count 0.05 10^3/uL (0.0-0.2); Absolute Eosinophil Count 0.12 10^3/uL (0.0-0.7); Absolute Lymphocyte Count 1.84 10^3/uL (1.2-3.4); Absolute Monocyte Count 0.73 10^3/uL (0.1-0.8); Absolute Neutrophil Count 5.54 10^3/uL (1.2-6.7); Basophils % 0.6 %; Eosinophils % 1.4 %; HCT 46.7 % (40.0-50.0); HGB 15.6 g/dL (13.5-17.5); Immature Grans % 0.2 %; Lymphocytes % 22.2 %; MCH 31.6 pg (27.0-33.0); MCHC 33.4 % (32.0-36.0); MCV 95 fL (80-95); MPV 8.6 fL (8.0-11.0); Monocytes % 8.8 %; Neutrophils % 66.8 %; Platelet Count 271 10^3/uL (130-400); RBC 4.94 10^6/uL (4.36-5.78); RDW 11.3 % (11.8-14.1); RDW-SD 39.2 fL
[2024-06-09] MEDS: Normal Saline - Diluent 50 ML VIAL IJ (20:27)
[2024-06-09 20:28] LABS: Anion Gap 7.7 mmol/L (3-11); BUN 31 mg/dL (7-18); CO2 30.3 mmol/L (21.0-32.0); Chloride 106 mmol/L (98-107); Estimated GFR 77.04 (mL/min/1.73m2); Glucose 118 mg/dL (74-106); Potassium 4.2 mmol/L (3.5-5.1); Sodium 144 mmol/L (136-145)
[2024-06-09] MEDS: Omnipaque 350 MG/ML 100 ML BTL IJ (20:28)
[2024-06-09 20:29] LABS: Prothrombin Time 10.1 sec (9.1-11.1)
[2024-06-09 21:01] VITALS: BP 136/74; PULSE 88
--- NOTE | 2024-06-09 21:10 | DI.VRAD_ITS ---
PROCEDURE INFORMATION: Exam: CT Left Upper Extremity With Contrast, Upper Arm Exam date and time: 06/09/2024 20:20 Age: 78 years old Clinical indication: Pain; Upper arm; Left; Additional info: Concern for biceps tendon rupture/tear TECHNIQUE: Imaging protocol: Computed tomography of the left upper extremity with contrast. Exam focused on the upper arm. Contrast material: OMNI 350; Contrast volume: 100 ml; Contrast route: INTRAVENOUS (IV); COMPARISON: CR XR SHOULDER LEFT 03/23/2023 11:07 FINDINGS: Bones/joints: Evidence of minor chronic ligamentous disease about the elbow. Chronic degenerative changes in the shoulder. No acute fracture or subluxation. Mild edema centered around the biceps musculature is slightly more pronounced proximally; based on CT appearance there is likely at least some tendon present at the level of the radial tuberosity, this area would be but she better assessed on MRI if clinically indicated. Soft tissues: See Bones/joints finding. IMPRESSION: 1. No acute bony pathology. 2. Probable biceps muscular tear and or other source of myositis which is more pronounced proximally. At least some of the distal tendinous attachment appears grossly present however this would be better assessed with MRI if clinically indicated. Dictated and Authenticated by: Princess Deluna MD. Ordering:JESS Foote MD
== END 2024-06-09 21:27 | disposition home or self-care (01) ==
PROVIDERS: Emergency Provider Emergency Medicine; PCP Nurse Practitioner Family
DX: S46.212A Strain of muscle, fascia and tendon of other parts of biceps, left arm, initial encounter (principal); M19.012 Primary osteoarthritis, left shoulder; M19.011 Primary osteoarthritis, right shoulder; I25.10 Atherosclerotic heart disease of native coronary artery without angina pectoris; I10 Essential (primary) hypertension; E78.5 Hyperlipidemia, unspecified; X58.XXXA Exposure to other specified factors, initial encounter
CPT/HCPCS: 80048; 99285; 73201; 85025; 85610; 99284; J3490

== ENCOUNTER → 2024-07-13 13:21 | Outpatient (BNVA) | payer MEDICARE, SELFPAY | PROVIDERS: PCP Nurse Practitioner Family ==

== ENCOUNTER 2024-08-08 15:51 | Outpatient (CLI) | payer MEDICARE, SELFPAY ==
--- NOTE | 2024-08-08 09:00 | DI.RAD_ITS ---
Exam(s) XR SHOULDER LT COMPLETE 2+V EXAM: XR SHOULDER LT COMPLETE 2+V CLINICAL HISTORY: left shoulder pain. TECHNIQUE: 2D digital imaging was performed of the left shoulder. Two images were obtained. Grashe y and axillary views were obtained. COMPARISON: CR XR SHOULDER LEFT from 03/23/2023 FINDINGS: BONES: No acute fracture is present. No bony destructive lesion is seen. JOINTS: No dislocation present. There are degenerative changes seen at the acromioclavicular joint. Mild degenerative changes are also seen at the glenohumeral joint. SOFT TISSUE: Normal. IMPRESSION: Mild degenerative changes seen in the left shoulder. DATA REPOSITORY: RADIATION DOSE DELIVERED:
== END 2024-08-08 15:52 | disposition home or self-care (01) ==
LOC: DIORS 15:51
PROVIDERS: PCP Nurse Practitioner Family; Referring Provider Nurse Practitioner Family; Visit Provider Student in an Organized Health Care Education/Training Program
DX: M19.011 Primary osteoarthritis, right shoulder (principal); M19.012 Primary osteoarthritis, left shoulder
CPT/HCPCS: 99214; 73030

== ENCOUNTER 2024-09-05 05:54 | Day surgery (SDC) | payer MEDICARE, SELFPAY ==
[2024-09-05] VITALS (40 sets, daily range): BP systolic 93–131; BP diastolic 54–80; PULSE 71–92; RESP 16–25; TEMP 36.2–36.6; O2SAT 91–96; BMI 27.1
--- NOTE | 2024-09-05 06:21 | W.ANESPRE ---
General Info Date of Service Date Performed: 09/05/24 Height: 5 ft 9 in Weight: 83.358 kg Body Mass Index (BMI): 27.1 Surgical Procedure: Operation Date: 09/05/24 07:40 Proposed Procedure Side Surgeon p Shoulder Reverse Total Arthroplasty, Possible Biceps Tenodesis (Depuy) Left James Cazares MD Meds Allergies and Home Medications Allergies Allergy/AdvReac Type Severity Reaction Status Date / Time Penicillins Allergy Intermediate facial Verified 09/05/24 06:14 swelling Home Medication ?Medication ?Instructions ?Recorded cholecalciferol (vitamin D3) 50 2,000 unit PO DAILY 12/25/14 mcg (2,000 unit) capsule (Vitamin D3) duloxetine 30 mg capsule,delayed 60 mg PO DAILY 12/25/14 release (Cymbalta) hydrocodone 5 mg-acetaminophen 300 1 tab-cap PO Q6H PRN 12/25/14 mg tablet (Vicodin) pramipexole 0.75 mg tablet 0.75 mg PO HS 12/25/14 acetaminophen 500 mg tablet 1,000 mg PO Q6H PRN 07/17/22 atorvastatin 40 mg tablet 40 mg PO DAILY 07/17/22 diclofenac sodium 1 % topical gel 2 g topical QID 07/17/22 (Arthritis Pain (diclofenac)) finasteride 5 mg tablet 5 mg PO DAILY 07/17/22 nystatin 100,000 unit/gram topical 1 applic topical DAILY 07/17/22 powder psyllium husk 0.4 gram capsule 0.4 g PO DAILY 07/17/22 (Fiber (psyllium husk)) tamsulosin 0.4 mg capsule 0.8 mg PO QHS 07/17/22 trazodone 50 mg tablet 75 mg PO QHS PRN 07/17/22 gabapentin 600 mg tablet 600 mg PO QID 07/30/23 ciclopirox 8 % topical solution topical 09/05/24 meloxicam 15 mg tablet mg 09/05/24 Current Visit Medications: Current Medications Generic Name Dose Route Start Last Admin Trade Name Freq PRN Reason Stop Dose Admin Ringer's Solution 1,000 mls @ 30 mls/hr 09/05/24 06:00 IV 09/05/24 23:59 INFUSION LEIDA Cefazolin Sodium/Dextrose 2 gm in 50 mls @ 100 mls/hr 09/05/24 06:00 Ancef Duplex IVPB 09/05/24 23:59 PREOP LEIDA Tranexamic Acid/Sodium Chloride 1,000 mg in 100 mls @ 600 mls/hr 09/05/24 06:00 IVPB 09/05/24 23:59 PREOP LEIDA IV Miscellaneous Supplies 1 each 09/05/24 06:00 Iv Access IV 09/05/24 23:59 DIRECTED LEIDA Sodium Chloride 0 ml 09/05/24 06:00 Normal Saline Flush 10 Ml Syr IV 09/05/24 23:59 PRN PRN Sodium Chloride 0 ml 09/05/24 06:00 Normal Saline 10 Ml Vial IJ 09/05/24 23:59 DIRECTED PRN Sterile Water 0 ml 09/05/24 06:00 Water,Injection,Sterile 10 Ml Vial IJ 09/05/24 23:59 DIRECTED PRN PFSH Active Problems Active Problems: Problem Status Onset Code Rotator cuff arthropathy of left shoulder Acute M12.812 Rupture of left proximal biceps tendon Acute S46.212A Family history of prostate cancer in father Acute Z80.42 Prepatellar bursitis, right knee Acute M70.41 Osteoarthritis of right knee Acute M17.11 Osteoarthritis of glenohumeral joints, bilateral Acute M19.011, M19.012 Amanda nodes (DJD hand) Acute M15.2 Heberden node Acute M15.1 BPH loc w urin obs/LUTS Acute N40.1 Screening for colon cancer Acute Z12.11 H/O bacterial meningitis Acute Z86.61 Restless legs Acute G25.81 Anxiety and depression Chronic F41.9, F32.A Hyperlipidemia Acute E78.5 CAD (coronary artery disease) Chronic I25.10 BPH w urinary obs/LUTS Acute N40.1, N13.8 Hydrocele, right Acute N43.3 Headache, post-traumatic Acute G44.309 Osteoarthritis of carpometacarpal joint Acute M19.049 Premature ventricular beat Acute I49.3 Insomnia Acute G47.00 H/O degenerative disc disease Acute Z87.39 DJD (degenerative joint disease) Chronic M19.90 Back pain Acute M54.9 Chronic pain Chronic G89.29 Colon polyps Acute K63.5 Tremor Acute R25.1 Surgical History Surgical History (Updated 09/05/24 @ 06:17 by Alyssia Wooten H/O hand surgery S/P lumbar fusion L4-L5 History of colonoscopy Tobacco Smoking/Tobacco Use Status: Former Tobacco Use Alcohol Alcohol Intake: former Substance Use Substance use: Never Substance use type: does not use Vital Signs and Lab Results Vital Signs Most Recent Vital Signs in EMR: Temp Pulse Pulse Ox 36.5 C 79 94 09/05/24 06:24 09/05/24 06:24 09/05/24 06:24 Lab Results Blood Type / Crossmatch: No Data to Display Complete Blood Count: No Data to Display Complete Metabolic Panel: No Data to Display Liver Function Panel: No Data to Display Coagulation Panel: No Data to Display Cardiac Panel: No Data to Display Arterial Blood Gas: No Data to Display Venous Blood Gas: No Data to Display Pancreas Panel: No Data to Display Thyroid Panel: No Data to Display Infectious Disease: No Data to Display Blood Cultures: No Data to Display Toxicology Panel: No Data to Display Imaging and Studies Imaging and Studies Study information below may be from another EMR and interpreted by another provider. Please see original notes in EMR for more complete details. Pulmonary Function Summary: IMPRESSION Normal pulmonary function study. Clinical correlation recommended. Anesthesia Assessment and Plan Anesthesia History Personal History: No History of Anesthesia Complications Family History: No Family History of Anesthesia Complications Exercise Tolerance Exercise Tolerance: Metabolic Equivalents>4 Cardiac & Pulmonary Exam Cardiac Exam: Normal S1/S2 Heart Sounds Pulmonary Exam: Clear Bilateral Breath Sounds Implantable Cardiac Device Does patient have a Pacemaker or an ICD?: No Airway Exam Known Difficult Airway: No Mallampati Class: 2 Mouth Opening: Normal (> 3cm) Thyromental Distance: Greater than 3 cm Neck Range of Motion: Full ROM Neck Circumference: Normal Teeth Condition: Edentulous ASA Classification ASA Score: ASA 2 Emergency Case?: No NPO Status NPO Status: NPO Clears >2 hours, Solids >8 hours Anesthesia Plan Resuscitation Status: Full Code Anesthesia Technique: General Anesthesia Airway Planned: Endotracheal Tube Pain Management: Surgeon and patient request nerve block Monitors Used: Standard Monitors Preoperative Comments:: 78 yo male for reverse total shoulder. Sig PMHx: CAD (denies [place] or chest pain with exertion), anxiety, lumbar fusion. former smoker, occ EtOH. Denies GERD. Sleeps with 4 pillows due to what sounds like post nasal drip. Previous Anes: - colo, prop, natural airway, no issues.
[2024-09-05] MEDS: Lactated Ringers 1,000 ML 30 ML IV (06:50)
--- NOTE | 2024-09-05 07:04 | W.PM.DSUDISC ---
Date of service: 09/05/24 Discharge Plan Disposition Patient Disposition: Home Condition: Stable Discharge Details Attending Provider: James Cazares Primary Care Provider: ELVIA BARRETT Home Meds and New Rx's Prescriptions: New naproxen 250 mg tablet 250 mg PO BID PRN (Reason: Moderate pain) Qty: 20 0RF hydrocodone-acetaminophen 5-325 mg tablet 1 - 2 tab PO Q6H PRNQty: 20 0RF Continued duloxetine [Cymbalta] 30 MG capsule,delayed release(DR/EC) 60 mg PO DAILY hydrocodone-acetaminophen [Vicodin] 1 EACH tablet 1 tab-cap PO Q6H PRN pramipexole 0.75 MG tablet 0.75 mg PO HS cholecalciferol (vitamin D3) [Vitamin D3] 2,000 UNIT capsule 2,000 unit PO DAILY atorvastatin 40 mg tablet 40 mg PO DAILY tamsulosin 0.4 mg capsule 0.8 mg PO QHS finasteride 5 mg tablet 5 mg PO DAILY trazodone 50 mg tablet 75 mg PO QHS PRN acetaminophen 500 mg tablet 1,000 mg PO Q6H PRN diclofenac sodium [Arthritis Pain (diclofenac)] 1 % gel 2 g topical QID Rx Instructions: apply to single elbow, wrist or hand; for hand includes palm/fingers/back of hand psyllium husk [Fiber (psyllium husk)] 0.4 gram capsule 0.4 g PO DAILY nystatin 100,000 unit/gram powder 1 applic topical DAILY gabapentin 600 mg tablet 600 mg PO QID meloxicam 15 mg tablet Patient Comments: TAKE 1 TABLET BY MOUTH ONCE DAILY NEEDED ciclopirox 8 % solution TOPICAL Patient Comments: APPLY A SMALL AMOUNT TOPICALLY IN THE EVENING FOR 30 DAYS FOR TOENAIL FUNGUS Discharge Instructions Additional Instructions: Surgery: Left reverse total shoulder arthroplasty (retentive liner) with biceps tenodesis on 09/05/24 Activity: Do not lift anything heavier than a coffee. You should keep your arm at your side in a relatively neutral position at all times except for gentle range of motion exercises, physical therapy, and essential activities. You should use the sling whenever you are out of the house. At home it is best to remove the sling and rest the arm on a pillow at your side or support the operative side with your other hand. A physical therapy prescription will be sent electronically to start in about 3 weeks. STANDARD Reverse TSA Protocol. Prescriptions: Naproxen 250 mg take 1 every 12 hours with a meal as needed for moderate pain Hydrocodone-acetaminophen 5-325 mg take 1-2 every 4-6 hours as needed for severe pain (do not use at the same time as acetaminophen) You may use [id number] Tylenol (acetaminophen) as needed for mild pain. These pain medications may be taken all at once or in different combinations as needed. Also, recommend Colace (docusate) as a stool softener as surgery and pain medicine cause constipation. You may try [id number] diphenhydramine (Benadryl) 25-50 mg nightly as a sleep aid Dressings: Leave dressing in place until follow-up. Keep clean and dry at all times. No showers please. Follow-up: 10-[address] Cazares You may take off the leg compression stockings this evening at home. You may also leave them on a few days longer if you have a history of leg swelling or edema. Please call the office during business hours with any questions or concerns. Let us know right away if you develop any redness, drainage, fevers, chest pain, or trouble breathing. Do not drink alcohol or drive for at least 24 hours after anesthesia. Stand Alone Forms: Anesthesia Discharge Inst., [email or web address] Block Instructions, Rohith Johnson ([facility]) Referrals: James Cazares MD [ [facility] STAFF PHYSICIAN] - 09/19/24 10:15 am Discharge Orders Discharge Orders: Discharge Order (Routine); Ordered 09/05/24 Ordered By: Clifford Brooke DS: Diagnosis Discharge Diagnosis (1) Rotator cuff arthropathy of left shoulder: Status: Acute (2) Rupture of left proximal biceps tendon: Status: Acute
--- NOTE | 2024-09-05 07:31 | W.PM.OP ---
Operative Note Operative Note PRE-OP DIAGNOSIS: Left: 1. Rotator cuff arthropathy 2. Proximal biceps rupture POST-OP DIAGNOSIS: same PROCEDURE: Left: 1. Reverse total shoulder arthroplasty, CPT # 67881 2. Open biceps tenodesis, CPT # 81244 The press operator assistant was medically required as this procedure involves retraction, protection of neurovascular structures, and manipulation of multiple instruments and implants at the same time, which cannot be done without a skilled press operator assistant. SURGEON: James Cazares [employer] PROFESSOR: Clifford Brooke ANESTHESIA TYPE: Local By Surgeon, General LMA/ETT and Primary Nerve Block Refer to Anesthesia Record ESTIMATED BLOOD LOSS: 200 COMPLICATIONS: None Patient was transported to: PACU Patient's condition: stable Implants: [employer] invendo medical Inhance shoulder system Small baseplate with 35 mm central screw and 20, 20, and 30 mm peripheral locking screws 40+4 mm glenosphere Large standard stem with +0mm shell and +4mm retentive liner Indications: Please see complete medical record for details. Findings: Significant subacute supraspinatus infraspinatus rotator cuff tearing. High-grade proximal biceps rupture with significant glenohumeral tendon remnant and still mobile proximal segment in the bicipital groove. Moderate chondromalacia. Procedure Description: In the operating room, general anesthesia was induced. The patient was positioned beachchair on the operating room table. All bony prominences were well-padded. Preoperative antibiotics were administered. The shoulder was prepped and draped in the usual sterile fashion for shoulder arthroplasty. The correct patient, procedure, and side of the procedure were all verified prior to incision. The deltopectoral approach was preinjected with 0.25% bupivacaine containing epinephrine and taken to the anterior shoulder. Care was taken to bluntly dissect the interval between the deltoid and pectoralis major muscles and to identify the cephalic vein within its fat stripe. The the vein was mobilized laterally. Subdeltoid space and conjoined tendon were freed of adhesions. The long head of the biceps tendon was identified just lateral to the lesser tuberosity. The uppermost margin of the pectoralis major tendon was released from the proximal humerus. The long head of the biceps tendon was identified within the bicipital groove. It was still mobile and had a thin remnant heading into the joint of somewhat synovial tissue and there was a large tendon stump irregular regimen at the superior glenoid. There is obvious deficiency and apparent subacute tearing with fraying of the supraspinatus infraspinatus. The subscapularis was largely intact. The biceps tendon was freed up, tension placed somewhat proximally and it was tenodesed to the pectoralis major tendon. A subscapularis tenotomy was performed while delivering the proximal humerus into external rotation. Appropriate coagulation was achieved especially interiorly. The anatomic neck was cut using an oscillating saw with the humeral head bone brought back table in case there was a need for future bone grafting. Attention was then turned to the glenoid and retractors were placed and a circumferential release performed using the long head of the biceps remnant to remove soft tissue about the glenoid rim. Care was taken inferiorly to work on bone only between 5 and 7:00 o'clock and bluntly elevate tissues inferiorly. The guide was placed on the glenoid and used to confirm placement and trajectory of the central guidepin. The guidepin was inserted and advanced just through the far cortex ensuring adequate central fixation length. The glenoid was prepared according to web site administrator specifications for the baseplate and central screw. The baseplate was impacted onto the glenoid surface with good fit followed by excellent compression and fixation of the central screw. The locking guide was then used to drill and place appropriately lengthed anterior, inferior, and posterior screws. The asif-uja-vctkzxtij reamer was used to confirm adequate peripheral reaming and screw heads flush in the baseplate. The glenosphere was applied with the binding folder machine and then impacted to engage the Golden taper. It was then locked with appropriate countersinking of the setscrew. The glenosphere was inspected and found to have good fit, appropriate positioning, and no soft tissue or bony impingement. The proximal humerus was delivered from the wound with adduction and external rotation. The proximal humerus was sized followed by insertion of the bicortical pin and over reaming. The blaze was then used with good bony fixation followed by the pin broaches to confirm correct orientation down the canal with care to maintain about 30 degrees retroversion and sufficient lateral to inline humeral alignment. A small bout of bone was removed laterally and inferiorly given the increased size superior-inferior relative to medial-lateral. The final stem was then impacted with excellent fit fixation strength and rotational control. Trialing was then done with a 0 mm liner and demonstrated reasonable stability and tension at +4 mm. Without placing undue tension on the construct, stability was excellent and more appropriate with a retentive liner. The trial shell and liner were removed. The final shell was impacted, checked, and then the final retentive liner was clicked appropriately into place, range of motion, stability, and tension confirmed. The shoulder was copiously irrigated with Betadine and normal saline. Hemostasis was appropriate. The deltopectoral interval was well-approximated. Subcutaneous tissue was irrigated then closed using 2-0 Monocryl in a buried interrupted fashion. Skin was closed using 3-0 Monocryl in a buried subcuticular fashion. Skin glue was applied to the incision. A silver impregnated bandage was placed over the incision. The extremity was placed into a shoulder immobilizer. The patient awoke from anesthesia without complication and was taken to the recovery room in stable condition. Date of Procedure: 09/05/24
[2024-09-05] MEDS: ceFAZolin 2 GM/50 ML BAG IVPB (07:45)
[2024-09-05] MEDS: TRANEXAMIC ACID/SOD. CHL. 1,000 MG/100 ML BAG 600 MG IVPB (07:48)
--- NOTE | 2024-09-05 08:04 | W.ANESNERVE ---
Nerve Block Single Injection Procedure Date and Time Date Performed: 09/05/24 Procedure Start: 07:18 Location Where Procedure Performed Procedure Location: Day Surgery Unit Reason Performed: Postoperative Analgesia Requesting Provider: James Cazares Timeout Performed Timeout Performed: Yes Monitoring Used ECG, Blood Pressure and SpO2 Sterility Sterility: Hand Hygiene, Surgical Cap, Surgical Mask, Sterile Gloves and Chlorhexidine Sedation Given During Procedure Sedation Given (Indicate Dose Given): No Sedation given Patient Mental Status Patient Mental Status: Awake Nerve Block 1st Nerve Block: Laterality: Left Block Type: Interscalene Ultrasound Image Saved?: Yes Needle / Catheter Used: 100mm SonoPlex II Local Anesthetic Bolus (Indicate Dose Given): Lidocaine used for local infiltration of skin, Bupivacaine 0.5% Dose:: 10 mL and Exparel Dose:: 10 mL Additives (Indicate Dose Given): None Ultrasound: Sterile probe cover and gel used Nerve Stimulator: Supplement to Ultrasound use and No twitch or parasthesia noted < 0.5 mA Paresthesia: None Procedure Tolerated: No Complications Procedure Outcome: Successful Procedure Comment: 2 attempts due to inadvertent needle removal and then contamination. New needle used to complete the block. Performed By: Star Salvador
[2024-09-05] MEDS: Bupivacaine 0.25% Pres-Free W/EPI 30 ML VIAL (08:21)
[2024-09-05] MEDS: ceFAZolin 1 GM/50 ML BAG IVPB (10:53)
--- NOTE | 2024-09-05 11:00 | DI.RAD_ITS ---
Exam(s) XR SHOULDER RT COMPLETE 2+V EXAM: XR SHOULDER RT COMPLETE 2+V INDICATION: Shoulder Arthritis. COMPARISON: CR XR SHOULDER RIGHT from 03/23/2023 CR XR SHOULDER LEFT from 03/23/2023 CR XR SHOULDER LT COMPLETE 2+V from 08/08/2024 TECHNIQUE: 2D digital imaging was performed. Two views. FINDINGS: A shoulder prosthesis has been placed. The components show satisfactory alignment. Residual postsur gical air in the soft tissues. DATA REPOSITORY: RADIATION DOSE DELIVERED:
--- NOTE | 2024-09-05 11:20 | W.ANESPOSTOP ---
Postoperative Evaluation Date, Time and Location Date Performed: 09/05/24 Time Performed: 11:20 Patient Location: PACU Vital Signs Most Recent Imported Vital Signs: Most Recent Vital Signs Temp Pulse Resp BP Pulse Ox 36.6 C 82 19 94/54 L 93 09/05/24 07:33 09/05/24 10:56 09/05/24 10:56 09/05/24 10:55 09/05/24 10:56 Pain Score Most Recent Pain Score: Most Recent Pain Score Pain Level 5 09/05/24 07:33 Assessment Mental Status: Awake (Alert & Oriented to Patient Baseline) Airway and Respiratory Function: Patent airway with normal (patient baseline) respiratory exam Cardiovascular Function: Hemodynamically Stable Hydration Status: Adequately Hydrated Nausea & Vomiting: No Nausea or Vomiting Pain: Pain is tolerable per patient Peripheral Nerve Block: Regional nerve block not resolved at time of post operative discharge
--- NOTE | 2024-09-05 12:16 | DI.RAD_ITS ---
Exam(s) XR SHOULDER LT COMPLETE 2+V EXAM: XR SHOULDER LT COMPLETE 2+V INDICATION: Shoulder Arthritis. COMPARISON: CR XR SHOULDER RIGHT from 03/23/2023 CR XR SHOULDER LEFT from 03/23/2023 CR XR SHOULDER LT COMPLETE 2+V from 08/08/2024 TECHNIQUE: 2D digital imaging was performed. Two views. FINDINGS: A shoulder prosthesis has been placed. The components show satisfactory alignment. Residual postsur gical air in the soft tissues. DATA REPOSITORY: RADIATION DOSE DELIVERED:
== END 2024-09-05 13:35 | disposition home or self-care (01) ==
PROVIDERS: PCP Nurse Practitioner Family; Visit Provider Student in an Organized Health Care Education/Training Program
PROC: (CPT 23472; principal; 2024-09-05 07:30)
DX: M12.812 Other specific arthropathies, not elsewhere classified, left shoulder (principal); S46.212A Strain of muscle, fascia and tendon of other parts of biceps, left arm, initial encounter; X58.XXXA Exposure to other specified factors, initial encounter; I25.10 Atherosclerotic heart disease of native coronary artery without angina pectoris; G89.18 Other acute postprocedural pain
CPT/HCPCS: 23472; 23430; C1713; 64415; 73030; J0131; J0665; J0666; J0690; J1100; J1805; J2003; J2405; J2704

== ENCOUNTER 2024-09-19 15:52 | Outpatient (CLI) | payer MEDICARE, SELFPAY ==
--- NOTE | 2024-09-19 15:45 | DI.RAD_ITS ---
Exam(s) XR SHOULDER RT 1V EXAM: XR SHOULDER RT 1V CLINICAL HISTORY: F/U LEFT RTSA. TECHNIQUE: 2D digital imaging was performed. COMPARISON: CR XR SHOULDER LT COMPLETE 2+V from 09/19/2024 FINDINGS: Single View No evidence of fracture or dislocation. However, there is advanced narrowing of the glenohumeral samson nt space. No obvious osteophytes. There are multiple small calcifications in the soft tissue just above the greater tuberosity consiste nt with calcific rotator cuff tendinitis. Subacromial space itself is not diminished. There degener ative changes in the AC joint. 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 No osteophytes. Calcific rotator cuff tendinitis. Moderate degenerative changes in the AC joint. DATA REPOSITORY: RADIATION DOSE DELIVERED:
== END 2024-09-19 15:53 | disposition home or self-care (01) ==
PROVIDERS: PCP Nurse Practitioner Family; Visit Provider Physician Assistant
DX: M12.812 Other specific arthropathies, not elsewhere classified, left shoulder (principal)
CPT/HCPCS: 73020

== ENCOUNTER 2024-09-19 15:56 | Outpatient (CLI) | payer MEDICARE, SELFPAY ==
--- NOTE | 2024-09-19 10:53 | DI.RAD_ITS ---
Exam(s) XR SHOULDER LT COMPLETE 2+V EXAM: XR SHOULDER LT COMPLETE 2+V CLINICAL HISTORY: F/U LEFT RTSA TECHNIQUE: 2D digital imaging was performed. COMPARISON: CR XR SHOULDER LT COMPLETE 2+V from 09/05/2024 FINDINGS: Two views Compared to the postop images of 09/05/2024 there is continued stable position alignment of the compo nents of the recently placed reverse prosthesis. There is no evidence of fracture or loosening nor e vidence of osteomyelitis. IMPRESSION: Stable satisfactory appearance. DATA REPOSITORY: RADIATION DOSE DELIVERED:
== END 2024-09-19 15:57 | disposition home or self-care (01) ==
LOC: DIORS 15:56
PROVIDERS: PCP Nurse Practitioner Family; Referring Provider Nurse Practitioner Family; Visit Provider Student in an Organized Health Care Education/Training Program
DX: M12.812 Other specific arthropathies, not elsewhere classified, left shoulder (principal); Z47.89 Encounter for other orthopedic aftercare
CPT/HCPCS: 99024; 73030

== ENCOUNTER → 2024-10-31 09:49 | Outpatient (BNVA) | payer MEDICARE, SELFPAY | PROVIDERS: PCP Nurse Practitioner Family; Visit Provider Nurse Practitioner Gerontology | DX: N40.1 Benign prostatic hyperplasia with lower urinary tract symptoms (principal); N13.8 Other obstructive and reflux uropathy; N43.3 Hydrocele, unspecified; Z80.42 Family history of malignant neoplasm of prostate | CPT/HCPCS: 99214 ==

== ENCOUNTER → 2024-11-14 09:47 | Outpatient (BNVA) | payer MEDICARE, SELFPAY | PROVIDERS: PCP Nurse Practitioner Family; Visit Provider Student in an Organized Health Care Education/Training Program | DX: Z47.1 Aftercare following joint replacement surgery (principal); Z96.612 Presence of left artificial shoulder joint | CPT/HCPCS: 99024 ==

== ENCOUNTER 2025-01-17 09:45 | Outpatient (CLI) | payer MEDICARE, SELFPAY ==
--- NOTE | 2025-01-17 09:30 | DI.RAD_ITS ---
Exam(s) XR SHOULDER LT COMPLETE 2+V EXAM: XR SHOULDER LT COMPLETE 2+V CLINICAL HISTORY: F/U LEFT RTSA. TECHNIQUE: 2D digital imaging was performed. Three views. COMPARISON: CR XR SHOULDER LT COMPLETE 2+V from 09/19/2024 CR XR SHOULDER RT 1V from 09/19/2024 FINDINGS: BONES: No acute fracture is present. No bony destructive lesion is seen. JOINTS: No dislocation present. Stable alignment shoulder prosthesis. Mild spurring at AC joint. SOFT TISSUE: Normal. IMPRESSION: Stable appearance of left shoulder prosthesis. DATA REPOSITORY: RADIATION DOSE DELIVERED:
== END 2025-01-17 09:46 | disposition home or self-care (01) ==
LOC: DIORS 09:46
PROVIDERS: PCP Nurse Practitioner Family; Referring Provider Nurse Practitioner Family; Visit Provider Student in an Organized Health Care Education/Training Program
DX: Z47.89 Encounter for other orthopedic aftercare (principal); M12.812 Other specific arthropathies, not elsewhere classified, left shoulder
CPT/HCPCS: 99213; 73030

== ENCOUNTER → 2025-03-26 12:56 | Outpatient (BNVA) | payer MEDICARE, SELFPAY | PROVIDERS: PCP Nurse Practitioner Family; Referring Provider Nurse Practitioner Family; Visit Provider Student in an Organized Health Care Education/Training Program | DX: K64.0 First degree hemorrhoids (principal); K62.89 Other specified diseases of anus and rectum | CPT/HCPCS: 99213 ==

== ENCOUNTER → 2025-05-01 15:14 | Outpatient (BNVA) | payer MEDICARE, SELFPAY | PROVIDERS: PCP Nurse Practitioner Family; Referring Provider Nurse Practitioner Family; Visit Provider Nurse Practitioner Gerontology | DX: N40.1 Benign prostatic hyperplasia with lower urinary tract symptoms (principal); N13.8 Other obstructive and reflux uropathy; N43.3 Hydrocele, unspecified; Z80.42 Family history of malignant neoplasm of prostate | CPT/HCPCS: 99213 ==

== ENCOUNTER 2025-05-01 16:05 | Outpatient (CLI) | payer MEDICARE, SELFPAY ==
[2025-05-02 18:13] LABS: PSA, Diagnostic 1.3 ng/mL (<=6.5)
== END 2025-05-01 16:06 | disposition home or self-care (01) ==
LOC: LBO 16:06
PROVIDERS: PCP Nurse Practitioner Family; Visit Provider Nurse Practitioner Gerontology
DX: N13.8 Other obstructive and reflux uropathy (principal); N40.1 Benign prostatic hyperplasia with lower urinary tract symptoms; Z80.42 Family history of malignant neoplasm of prostate
CPT/HCPCS: 36415; 99213; 84153

== ENCOUNTER 2025-05-30 08:41 | Outpatient (CLI) | payer MEDICARE, SELFPAY ==
[2025-05-30 08:36] VITALS: BP 114/72; PULSE 81; RESP 18; TEMP 36.6; O2SAT 96
[2025-05-30 09:13] VITALS: PULSE 76; RESP 21; O2SAT 97
[2025-05-30 09:14] VITALS: BP 135/79; PULSE 76; PULSE 77; RESP 16; O2SAT 95
[2025-05-30 09:16] VITALS: BP 131/77; PULSE 72; PULSE 74; RESP 16; O2SAT 97
[2025-05-30 09:20] VITALS: PULSE 71; RESP 19; O2SAT 95
--- NOTE | 2025-05-30 09:25 | DI.RAD_ITS ---
Exam(s) XR PAIN CLINIC SACRIOILIAC 2V EXAM: XR PAIN CLINIC SACRIOILIAC 2V CLINICAL HISTORY: DX: Sacroiliac Dysfunction. TECHNIQUE: Fluoroscopy was provided for the referring physician for guidance with performing pain clinic injection procedure. COMPARISON: No exams were available for comparison FINDINGS: Please see procedure note for details. Fluoro time: 29.5 seconds RADIATION DOSE DELIVERED: Ka,r=10.7 mGy
[2025-05-30] MEDS: Nerve Block Tray 1 EACH MC (09:27)
[2025-05-30] MEDS: methylPREDNISolone ACETATE 40 MG/ML VIAL IJ (09:27)
[2025-05-30] MEDS: Omnipaque 240 MG/ML 50 ML BTL IJ (09:27)
--- NOTE | 2025-05-30 09:39 | PDOC.PAIN_ITS ---
Date of service: 05/30/25 Time of Service: 09:39 Pain Managment Procedure Note Procedure Note Procedure Note: PROCEDURE NOTE BILATERAL INTRA-ARTICULAR SACROILIAC JOINT INJECTION Date of Service: May 30, 2025 Patient: Mark Rivers SR (Rick) Provider: Raymond Ndiaye DO, MPH COMMENTS: I previously evaluated the patient in the office and their symptoms in relation to the sacroiliac joint pain have remained the same. He has had this procedure in the past and had >9 months of >50% pain relief. His symptoms have returned. Pre-operative diagnosis: Sacroiliac joint dysfunction ICD-10 M53.3 Post-operative diagnosis: Same Pre-procedure pain: VAS= 5/10 Mark Rivers SR (Rick) has been referred to our [facility] for a Bilateral intra-articular Sacroiliac joint injection. Flores (Rick) was interviewed and the medical record reviewed. There were no medical, pharmacologic, radiographic or other structural contraindications to attempting a fluoroscopically-guided, contrast-enhanced, intra-articular Sacroiliac joint injection. The risks, benefits, and potential side effects of this procedure were reviewed with the patient. Questions and concerns were addressed. After it was clear that Flores (Rick) was fully informed about the procedure, the printed consent form was signed by the patient and myself. Flores (Rick) was placed in the prone position on the fluoroscopy table and an automated blood pressure cuff, 3 lead EKG, and pulse oximeter were applied. The skin entry point for approaching the Left sacroiliac joint was identified under the most advantageous fluoroscopic view and marked. Following thorough Chlorhexadine preparation of the skin and draping with sterile surgical drapes, 2 mls of 1% lidocaine was infiltrated into the skin at the entry point and the surrounding subcutaneous tissues. Next, a 3.5 22G spinal needle was placed under fluoroscopic guidance into the Left sacroiliac joint. Intra-articular placement was confirmed by a clear arthrogram resulting from the injection of 0.25ml of Omnipaque-240. Next, 1 ml of Depo- Medrol 40 mg/ml was injected intra-articularly with an initial reproduction of a significant component of the usual pain. This was followed with 1 ml of 1% Lidocaine. The needle was then removed without difficulty. (49 ml of Omnipaque-240 was wasted). The exact procedure was completed on the opposite sacroiliac joint. Flores (Rick)'s vital signs were stable throughout the procedure and were as recorded in nursing records. Follow up plans and appointments were discussed with Mark Pennington). Post procedure instructions were given as documented in nursing records. Having met discharge criteria, Flores (Rick) was [facility] from the [facility]. COMMENTS: Post-procedure pain: VAS= 1/10. If the patient receives at least 50% improvement in pain and/or function for at least 3 months, this procedure can be repeated if needed. I personally performed this entire procedure. RAYMOND NDIAYE DO, MPH ABPMR-subspecialty board certification in Pain Medicine [facility] Coding Conscious Sedation used for procedure: No CPT Codes: SI Joint Inj; incl Fluoro * BILATERAL* - [id number] ([id number]) Additional Codes: Date of Service () Diagnoses: Sacroiliac joint dysfunction
== END 2025-05-30 08:42 | disposition home or self-care (01) ==
LOC: PC 08:41
PROVIDERS: PCP Nurse Practitioner Family; Visit Provider Preventive Medicine Occupational Medicine
DX: M54.50 Low back pain, unspecified (principal); M53.3 Sacrococcygeal disorders, not elsewhere classified
CPT/HCPCS: 27096; 72200; J1010; Q9967